=== PATIENT | female | born 1970 | race Caucasian/White ===

== ENCOUNTER 2017-03-24 14:40 | Emergency (ER) | payer OTHER ==
[2017-03-24] MEDS ORDERED: INSULIN REGULAR, HUMAN 100 UNIT/ML 3ML VIAL SQ ONE ×2 (15:04→16:23)
[2017-03-24 15:22] LABS: BASOPHILS % 1.1 (0.0-1.5); EOSINOPHILS % 1.4 % (0.0-6.8); MONOCYTES % 3.2 % (0.0-11.0); NEUTROPHILS # 3.4 # k/uL (1.4-7.7)
[2017-03-24 15:32] LABS: eGFR (African) > 60; eGFR (Non-African) > 60
[2017-03-24 18:13] VITALS: BP 119/58
--- NOTE | 2017-03-24 22:32 | ED Physician Documentation ---
General Adult - HISTORIAN Historian: patient - HPI Stated Complaint: High Blood Sugar Chief Complaint: General Adult Additional Information: high blood sugar, blurred vision at work Onset: minutes (30) Timing: still present Severity: moderate Modifying Factors: high sugar diet Further Comments: no - ROS CONST: no problems. denies: fever, sweating, recent illness, weakness, weight loss, chills EYES/ENT: problems with vision (blurred vision), other (polydipsia) CVS/RESP: none GI/: none MS/SKIN/LYMPH: none, other (neuropathies) NEURO/PSYCH: tingling, numbness. denies: headache, fainting, dizziness, difficulty with speech, anxiety, depression - PAST HX Past History: other (type 2 dm) Other History: none Surgeries/Procedures: none Immunizations: referred to PCP Allergies/Adverse Reactions: Allergies Allergy/AdvReac Type Severity Reaction Status Date / Time ibuprofen [From Advil] Allergy Verified 03/24/17 15:03 Home Medications: Ambulatory Orders Medication Instructions Recorded Fluoxetine HCl [Fluoxetine HCl] 40 mg PO DAILY 03/24/17 Gemfibrozil [Lopid] 600 mg PO BID 03/24/17 Hydrochlorothiazide [Hydrodiuril] 25 mg PO DAILY 03/24/17 Lisinopril [Prinivil] 20 mg PO DAILY 03/24/17 Meloxicam [Mobic] 15 mg PO DAILY 03/24/17 Metformin HCl [Glucophage] 500 mg PO BID 03/24/17 - SOCIAL HX Smoking History: non-smoker Alcohol Use: none Drug Use: none - FAMILY HX Family History: No - VITAL SIGNS Vital Signs: Vital Signs Temp Pulse Resp BP Pulse Ox 97 F L 72 16 119/58 99 03/24/17 14:40 03/24/17 18:10 03/24/17 18:10 03/24/17 18:10 03/24/17 18:10 - REVIEWED ASSESSMENTS Nursing Assessment Reviewed: Yes Vitals Reviewed: Yes Progress - Results/Orders Results/Orders: fingersticks, ua, cbc, cmp ordered - Progress Progress: pt. given total of 18 unitsd humulin insulin Critical Care Note - Critical Care Note Total Time (mins): 0 ED Results Lab/Radiology - Lab Results Lab Results: Lab Results 03/24/17 03/24/17 15:15 15:15 WBC 5.30 K/ul K/ul (4.00-12.00) RBC 4.64 M/ul M/ul (3.90-5.20) Hgb 13.9 g/dL g/dL (12.0-16.0) Hct 41.2 % % (34.5-46.5) MCV 89.0 fl fl (80.0-100.0) MCH 30.0 pg pg (28.0-34.0) MCHC 33.7 g/dL g/dL (30.0-36.0) RDW 13.6 % % (11.3-14.3) Plt Count 171 K/mm3 K/mm3 (130-400) Neut % (Auto) 63.8 % % (39.0-79.0) Lymph % (Auto) 28.9 % % (16.0-50.0) [place] % (Auto) 3.2 % % (0.0-11.0) Eos % (Auto) 1.4 % % (0.0-6.8) Baso % (Auto) 1.1 (0.0-1.5) Neut # (Auto) 3.4 # k/uL # k/uL (1.4-7.7) Lymph # (Auto) 1.5 # k/uL # k/uL (0.6-4.0) [place] # (Auto) 0.2 # k/uL # k/uL (0.0-0.9) Eos # (Auto) 0.1 # k/uL # k/uL (0.0-0.6) Baso # (Auto) 0.1 # k/uL # k/uL (0.0-0.5) Reactive Lymphs % 1.6 % % (0.0-5.0) Reactive Lymphs # 0.1 # k/uL # k/uL (0.0-0.8) Sodium 131 mmol/L L mmol/L (136-145) Potassium 3.8 mmol/L mmol/L (3.5-5.0) Chloride 97 mmol/L L mmol/L (98-110) Carbon Dioxide 25 mmol/L mmol/L (20-32) BUN 10 mg/dL mg/dL (10-26) Creatinine 0.8 mg/dL mg/dL (0.4-1.5) Estimated Creat Clear 168 Est GFR ( Amer) > 60 (60 - ) Est GFR (Non-Af Amer) > 60 (60 - ) Glucose 390 mg/dL H mg/dL (70-99) Calcium 10.2 mg/dL mg/dL (8.5-10.5) Total Bilirubin 0.5 mg/dL mg/dL (0.2-1.2) AST 38 U/L U/L (0-41) ALT 45 U/L U/L (0-45) Alkaline Phosphatase 100 U/L U/L (46-116) Total Protein 7.6 g/dL g/dL (6.0-8.5) Albumin 4.6 g/dL g/dL (3.0-5.5) - Radiology Radiology Impressions: none ordered - Orders Orders: ED Orders Category Date Time Status CBC/PLATELET/DIFF Routine Lab 03/24/17 15:15 Completed CMP Routine Lab 03/24/17 15:15 Completed URINALYSIS Routine Lab 03/24/17 15:05 Ordered Chem Sticks Med 03/24/17 17:00 Discontinued 1 each MC CHEMQ Insulin Regular, Human [Humulin R] Med 03/24/17 15:04 Discontinued 10 unit SQ NOW ONE Insulin Regular, Human [Humulin R] Med 03/24/17 16:23 Discontinued 8 unit SQ NOW ONE General Adult Physical Exam - PHYSICAL EXAM GENERAL APPEARANCE: moderate distress EENT: ENT inspection normal, pharynx normal, no signs of dehydration, SHEMAR, no nystagmus, TM's nml, other (macular edema) NECK: normal inspection, thyroid normal, supple RESPIRATORY: no resp distress, chest non-tender, breath sounds normal CVS: reg rate & rhythm, heart sounds normal, equal pulses, no murmur ABDOMEN: soft, no organomegaly, normal bowel sounds, no abdominal bruit, no distension, non-tender BACK: normal inspection, no CVA tenderness SKIN: warm/dry, normal color EXTREMITIES: non-tender, normal range of motion, no evidence of injury, no edema NEURO: oriented X3, CN's nml as tested, motor nml, sensation nml, mood/affect nml, cognition normal Discharge Clincal Impression: Uncontrolled diabetes mellitus Qualifiers: Diabetes mellitus type: type 2 Diabetes mellitus complication status: with ophthalmic complications Diabetes mellitus complication detail: with diabetic macular edema, resolved following treatment Diabetes mellitus local [employer] insulin use: without halfway use Laterality: bilateral Qualified Code(s): 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 daily Condition: Stable Disposition: 01 HOME, SELF-CARE Decision to Admit: NO Decision Time: 18:00
== END 2017-03-24 18:10 | disposition home or self-care (01) ==
LOC: ED 14:40
DX: E11.37X3 Type 2 diabetes mellitus with diabetic macular edema, resolved following treatment, bilateral (principal); E11.65 Type 2 diabetes mellitus with hyperglycemia
CPT/HCPCS: 80053; 85025; J1815; 36415; 96372; 99283

== ENCOUNTER 2017-04-18 09:50 | Outpatient (CLI) | payer OTHER | END 2017-04-18 09:52 | LOC: OUT 09:50 | PROVIDERS: ATTEND Nurse Practitioner Family | DX: E11.9 Type 2 diabetes mellitus without complications (principal) | CPT/HCPCS: G0270 ==

== ENCOUNTER 2018-06-29 09:37 | Emergency (ER) | payer BC, OTHER ==
[2018-06-29] MEDS ORDERED: INSULIN REGULAR, HUMAN 100 UNIT/ML 3ML VIAL IV ONE (10:06)
--- NOTE | 2018-06-29 10:11 | ED Physician Documentation ---
General Adult - HISTORIAN Historian: patient - HPI Stated Complaint: Elevated BS Chief Complaint: General Adult Additional Information: Patient presents to ED with blood sugar of 560 this morning. Patient is DM2 and takes Metformin 1000mg BID, however, admits to missing her evening doses on occasion. She reports a week history of visual changes, fatigue, weakness, numbness/tingling hands/feet, polydipsia and polyuria. She went to work today and was seeing white spots in her vision along with extreme fatigue. She finally decided to take her blood sugar, which she does not normally do, it was 560. Her employer sent her home and her PCP sent her to the ED. Onset: days ago (7) Timing: still present, better (blood sugar 466 here in ED) Severity: moderate Further Comments: no - ROS CONST: weakness. denies: fever, sweating EYES/ENT: problems with vision. denies: nasal drainage CVS/RESP: denies: chest pain, shortness of breath, cough GI/: denies: abdominal pain, problems urinating, vomiting, nausea MS/SKIN/LYMPH: none NEURO/PSYCH: tingling (hands and feet), numbness. denies: headache - PAST HX Past History: none Other History: diabetes Type 2 Surgeries/Procedures: none Allergies/Adverse Reactions: Allergies Allergy/AdvReac Type Severity Reaction Status Date / Time ibuprofen [From Advil] Allergy Verified 03/24/17 15:03 Home Medications: Ambulatory Orders Medication Instructions Recorded Fluoxetine HCl 40 mg PO DAILY 03/24/17 Gemfibrozil [Lopid] 600 mg PO BID 03/24/17 Hydrochlorothiazide [Hydrodiuril] 25 mg PO DAILY 03/24/17 Lisinopril [Prinivil] 20 mg PO DAILY 03/24/17 Meloxicam [Mobic] 15 mg PO DAILY 03/24/17 Metformin HCl [Glucophage] 500 mg PO BID 03/24/17 - SOCIAL HX Smoking History: non-smoker (quit 3 years ago) Alcohol Use: none Drug Use: none - FAMILY HX Family History: Yes (diabetes ) - VITAL SIGNS Vital Signs: Vital Signs Temp Pulse Resp BP Pulse Ox 97.9 F 84 18 154/58 98 06/29/18 09:38 06/29/18 09:38 06/29/18 09:38 06/29/18 09:38 06/29/18 09:38 - REVIEWED ASSESSMENTS Nursing Assessment Reviewed: Yes Vitals Reviewed: Yes Progress - Progress Progress: 1015 Unable to order ABG as machine has no cartriages. Beta-hydroxybutyrate is not available at this institution. 1052 CO2 on chemistry is 27 so unlikely patient is in DKA. 1106 Patient states she is feeling better. Discussed lab results. Patient admits to nearly always forgetting to take her evening dose of Metformin. We discussed starting amaryl daily in am. ED Results Lab/Radiology - Lab Results Lab Results: UA = +2 glucose, neg Ketone, neg blood, neg protein, Neg Nitrite/leukocyte - Orders Orders: ED Orders Category Date Time Status Place IV Lock 1T Care 06/29/18 10:05 Active CBC/PLATELET/DIFF Routine Lab 06/29/18 Ordered CMP Routine Lab 06/29/18 Ordered UA W/MICRO IF INDICATED Routine Lab 06/29/18 10:05 Ordered Insulin Regular, Human [Humulin R] Med 06/29/18 10:06 Once 10 unit IV NOW ONE General Adult Physical Exam - PHYSICAL EXAM GENERAL APPEARANCE: no distress EENT: SHEMAR NECK: normal inspection RESPIRATORY: no resp distress, chest non-tender, breath sounds normal CVS: reg rate & rhythm ABDOMEN: soft, normal bowel sounds, non-tender SKIN: warm/dry, normal color EXTREMITIES: non-tender, no edema NEURO: oriented X3, motor nml Discharge Clincal Impression: Hyperglycemia due to type 2 diabetes mellitus Qualifiers: Diabetes mellitus skilled nursing insulin use: without skilled nursing use Qualified Code(s): E11.65 - Type 2 diabetes mellitus with hyperglycemia Referrals: Bola Augustine MD [Primary Care Provider] - 2 Days Additional Instructions: 1. CHECK BLOOD SUGARS A MINIMUM OF TWICE DAILY. IF MORNING BLOOD SUGAR IS LESS THAN 60 DO NOT TAKE AMARYL 2. Maintain a healthy diet, limiting sugary foods. Start a daily exercise regimen. 3. Follow up with Dr. Bateman as soon as possible to discuss diabetic regimen. Condition: Stable Disposition: 01 HOME, SELF-CARE Decision to Admit: NO Date of Decison to Admit: 06/29/18 Decision Time: 11:14
[2018-06-29] MEDS ORDERED: 0.9 % SODIUM CHLORIDE 1,000 ML IV ONE (10:17)
[2018-06-29 10:39] LABS: BASOPHILS % 0.5 (0.0-1.5); EOSINOPHILS % 2.9 % (0.0-6.8); MEAN CORPUSCULAR HEMOGLOBIN 29.9 pg (28.0-34.0); MONOCYTES % 4.1 % (0.0-11.0); NEUTROPHILS # 3.4 # k/uL (1.4-7.7)
[2018-06-29 10:50] LABS: eGFR (Non-African) > 60
[2018-06-29 11:40] VITALS: BP 148/62
[2018-06-29 13:38] LABS: APPEARANCE,URINE CLEAR (CLEAR); COLOR,URINE YELLOW (YELLOW); OCCULT BLOOD,URINE NEGATIVE (NEGATIVE)
[2018-06-29 13:39] LABS: UROBILINOGEN URINE 0.2 Eu (0.2-1.0)
== END 2018-06-29 11:30 | disposition home or self-care (01) ==
LOC: ED 09:37
DX: E11.65 Type 2 diabetes mellitus with hyperglycemia (principal)
CPT/HCPCS: 36415; 80053; 81002; 85025; 96365; 99283; 99284; J1815; J7030; S1016